=== PATIENT | male | born 1990 | race African-American/Black ===

== ENCOUNTER 2022-04-29 22:18 | Emergency (ER) | payer BC ==
[~2022-04-29] VITALS: Ht 175.3 cm; Wt 74.8 kg
--- NOTE | 2022-04-30 00:40 | NUR ---
BIBS FOR C/O COMPICATIONS OF COVID SUCH HAIR LOSS AND WHEEZING TESTED POSITIVE FOR COVID 5 DAYS AGO. PT A/OX4. TOLERATING R/A WELL WITH NO SOB; RESP EVEN AND NON LABORED. AMBULATORY WITH STEADY GAIT. SAFETY MEASURES IN PLACE.
--- NOTE | 2022-04-30 01:07 | NUR ---
COVID SWAB COLLECTED AND SENT TO LAB
[2022-04-30] MEDS ORDERED: HYDR-4209 PO (02:20)
[2022-04-30] MEDS ORDERED: ONDA4TAB5 PO (02:20)
[2022-04-30] MEDS ORDERED: IBUPROFEN 600 MG TABLET ONE (02:27)
[2022-04-30] MEDS ORDERED: IBUPROFEN 600 MG TABLET PO ONE (02:30)
[2022-04-30 02:31] VITALS: BP 141/83
== END 2022-04-30 02:32 | disposition home or self-care (01) ==
LOC: ER 22:23
DX: R21 Rash and other nonspecific skin eruption (principal); R51.9 Headache, unspecified; Z20.822 Contact with and (suspected) exposure to COVID-19
CPT/HCPCS: 99283; 87426; C9803